=== PATIENT | female | born 1955 | race Caucasian/White ===

== ENCOUNTER 2023-09-23 06:47 | Outpatient (CLI) | payer MEDICARE, SELFPAY ==
[2023-09-23 08:23] LABS: Cholesterol 216 mg/dL (0-200); HDL Direct 56 mg/dL; Triglycerides 77 mg/dL (<150)
[2023-09-23 08:37] LABS: LDL Cholesterol Direct 129 mg/dL
[2023-09-23 09:07] LABS: Vitamin D 25 Hydroxy 48.9 ng/mL
[2023-09-23 13:21] LABS: Hemoglobin A1C 5.6 % (<5.7)
== END 2023-09-23 06:48 | disposition home or self-care (01) ==
PROVIDERS: Referring Provider Chiropractor
DX: N95.1 Menopausal and female climacteric states (principal); F41.9 Anxiety disorder, unspecified; C44.81 Basal cell carcinoma of overlapping sites of skin
CPT/HCPCS: 36415; 80061; 82306; 83036